=== PATIENT | male | born 1975 | race Caucasian/White ===

== ENCOUNTER 2018-01-27 20:43 | Emergency (ER) | payer OTHER ==
[~2018-01-27] VITALS: Ht 193 cm; Wt 113.4 kg
[2018-01-27 20:45] VITALS: BP 145/96
--- NOTE | 2018-01-27 20:45 | NUR ---
BIBA TO ER BED 3
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
--- NOTE | 2018-01-27 20:50 | NUR ---
PT STATED THAT HE IS UNABLE TO GIVE URINE SAMPLE AT THIS TIME, PT GIVEN WATER.
[2018-01-27] MEDS ORDERED: MORPHINE SULFATE 4 MG/ML SYR IM ONE (21:05)
[2018-01-27] MEDS ORDERED: KETOROLAC 30 MG/ML VIAL IM ONE (21:05)
[2018-01-27] MEDS ORDERED: MORPHINE SULFATE 4 MG/ML SYR IVP ONE (21:25)
[2018-01-27] MEDS ORDERED: KETOROLAC 30 MG/ML VIAL IVP ONE (21:25)
--- NOTE | 2018-01-27 21:30 | NUR ---
PT AT BEDSIDE. ER MD AT BEDSIDE. PT REMAINS IN MODERATE DISTRESS OF PAIN, MEDS GIVEN ORDERED. PT TOLERATED WELL.
--- NOTE | 2018-01-27 21:45 | NUR ---
PT TAKEN TO CT
--- NOTE | 2018-01-27 21:50 | NUR ---
PT STATED THAT HE IS UNABLE TO GIVE URINE SAMPLE, PT REFUSING TO TRY AT THIS TIME. PT GIVEN WATER.
[2018-01-27] MEDS ORDERED: DIAZEPAM 5 MG TAB PO ONE (22:10)
[2018-01-27] MEDS: MORPHINE SULFATE 4 MG/ML SYR IVP ONE ×2 (22:40→23:19)
--- NOTE | 2018-01-27 22:50 | NUR ---
PT STATED THAT HE IS UNABLE TO GIVE URINE SAMPLE AT THIS TIME, PT REMAINS REFUSING TO TRY AT THIS TIME. MARISSA GONZALEZ MADE AWARE.
[2018-01-28] VITALS: BP 132/95
--- NOTE | 2018-01-28 | NUR ---
Patient discharged with v/s stable. Written and verbal after care instructions given and explained. Patient alert, oriented and verbalized understanding of instructions. Ambulatory with steady gait. All questions addressed prior to discharge. ID band removed. Patient advised to follow up with PMD. Rx of LIDODERN TRANSDERMAL PATCH, NAPROSYN, NORCO given. Patient educated on indication of medication including possible reaction and side effects. Opportunity to ask questions provided and answered.
== END 2018-01-28 | disposition home or self-care (01) ==
LOC: MED 20:43
DX: G89.29 Other chronic pain (principal); M54.41 Lumbago with sciatica, right side; E11.9 Type 2 diabetes mellitus without complications; I10 Essential (primary) hypertension
CPT/HCPCS: 74176; 82948; 96374; 96375; 96376; 99284; J1885; J2270

== ENCOUNTER 2018-09-10 18:00 | Emergency (ER) | payer SELFPAY ==
[~2018-09-10] VITALS: Ht 193 cm; Wt 108.9 kg
[2018-09-10 18:33] VITALS: BP 145/106
[2018-09-10] MEDS ORDERED: METF500T PO (18:41)
[2018-09-10] MEDS ORDERED: INSU100S22 SUBQ (18:41)
--- NOTE | 2018-09-10 18:41 | NUR ---
PT TO BED 12
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
--- NOTE | 2018-09-10 19:31 | NUR ---
PT TAKEN TO RAD
--- NOTE | 2018-09-10 19:53 | NUR ---
PT RETURN FROM RAD
[2018-09-10 20:24] VITALS: BP 155/103
[2018-09-10] MEDS ORDERED: KETOROLAC 60 MG/2 ML VIAL IM ONE (20:30)
--- NOTE | 2018-09-10 20:46 | NUR ---
Patient discharged with v/s stable. Written and verbal after care instructions given and explained. Patient alert, oriented and verbalized understanding of instructions. Ambulatory with steady gait. All questions addressed prior to discharge. ID band removed. Patient advised to follow up with PMD. Rx of Tramadol and motrin given. Patient educated on indication of medication including possible reaction and side effects. Opportunity to ask questions provided and answered.
== END 2018-09-10 20:46 | disposition home or self-care (01) ==
LOC: MED 18:00
DX: S13.4XXA Sprain of ligaments of cervical spine, initial encounter (principal); S40.012A Contusion of left shoulder, initial encounter; M54.9 Dorsalgia, unspecified; I10 Essential (primary) hypertension; E11.9 Type 2 diabetes mellitus without complications; Z79.84 Long term (current) use of oral hypoglycemic drugs; Z79.899 Other long term (current) drug therapy; V03.90XA Pedestrian on foot injured in collision with car, pick-up truck or van, unspecified whether traffic or nontraffic accident, initial encounter; Y93.89 Activity, other specified; Y92.488 Other paved roadways as the place of occurrence of the external cause; Y99.8 Other external cause status
CPT/HCPCS: 71045; 72040; 73030; 96372; 99283; J1885

== ENCOUNTER 2019-02-07 04:45 | Emergency (ER) | payer OTHER ==
[~2019-02-07] VITALS: Ht 193 cm; Wt 111.1 kg
[2019-02-07 04:45] VITALS: BP 162/102
[~2019-02-07 04:45] MED LIST: INSU100S22 SUBQ; METF500T PO
--- NOTE | 2019-02-07 04:45 | NUR ---
TO BED # 04 AMBULATORY
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
--- NOTE | 2019-02-07 04:54 | NUR ---
Dr. Marcial examining patient.
[2019-02-07] MEDS ORDERED: KETOROLAC 60 MG/2 ML VIAL IM ONE (05:00)
--- NOTE | 2019-02-07 05:02 | NUR ---
X-Ray at bedside.
--- NOTE | 2019-02-07 05:21 | NUR ---
PT STATES DECREASE IN PAIN. 6/10 ACHING PAIN TO RT ELBOW
[2019-02-07 05:37] VITALS: BP 162/102
--- NOTE | 2019-02-07 05:38 | NUR ---
Patient discharged with v/s stable. Written and verbal after care instructions given and explained. Patient alert, oriented and verbalized understanding of instructions. Ambulatory with steady gait. All questions addressed prior to discharge. ID band removed. Patient advised to follow up with PMD. Rx of NORCO AND MOTRIN given. Patient educated on indication of medication including possible reaction and side effects. Opportunity to ask questions provided and answered. PT MADE AWARE TO SEE ORTHO DOCTOR IN 2 DAYS.
== END 2019-02-07 05:38 | disposition home or self-care (01) ==
LOC: MED 04:45
DX: S52.121A Displaced fracture of head of right radius, initial encounter for closed fracture (principal); I10 Essential (primary) hypertension; F17.210 Nicotine dependence, cigarettes, uncomplicated; Z79.4 Long term (current) use of insulin; Z79.899 Other long term (current) drug therapy; V29.9XXA Motorcycle rider (driver) (passenger) injured in unspecified traffic accident, initial encounter; Y93.89 Activity, other specified; Y92.410 Unspecified street and highway as the place of occurrence of the external cause; Y99.8 Other external cause status
CPT/HCPCS: 29105; 73080; 96372; 99283; J1885; Q0092